=== PATIENT | male | born 1965 | race Caucasian/White ===

== ENCOUNTER 2017-01-09 14:47 | Inpatient (IN) ==
--- NOTE | 2017-01-09 15:05 | ED EKG INTERP ---
EKG Interpretation - EKG Time of EKG reading by physician:: 14:49 EKG Read and Signed by:: Elliott Jauregui EKG Interpretation (*Must complete 3 of following elements*): Abnormal Rate: 98 Rhythm: normal sinus rhythm Comments: left anterior fascicular block
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
[2017-01-09 16:29] LABS: ALLEN TEST NO; BE 15.9 mmoll (-3.0-3.0); BLOOD TYPE ARTERIAL; DRAW SITE L RADIAL; METHB 1.5 % (0.0-1.5); O2(CT) 22.9 mL/dL (15.0-23.0); PO2(98.6) 84 mmHg (60-100); SAMPLE BLOOD; SAO2 99.1 % (95.0-100.0); pH(98.6) 7.36 (7.35-7.45)
[2017-01-09 16:33] LABS: MODALITY CANNULA
[2017-01-09 16:35] LABS: PCO2(98.6) 83 mmHg (35-45)
[2017-01-09 17:50] LABS: MANUAL DIFF NEEDED? NO
[2017-01-09 17:58] LABS: BASO% 0.2 % (0.0-0.8); HEMATOCRIT 52.9 % (42.0-52.0); HEMOGLOBIN 16.6 g/dL (14.0-18.0); LYMPH# 0.62 X1000 (1.2-3.4); MCH 30.1 PG (27-31); MCHC 31.4 g/dL (33-37); MCV 95.8 FL (81-99); MONO# 0.91 X1000 (0.11-0.59); MONO% 17.6 % (1.7-9.3); MPV 10.8 FL (7.4-10.4); NEUT% 70.2 % (42.2-75.2); PLT 189 X1000 (130-400); RBC 5.52 XMIL (4.7-6.1)
[2017-01-09 18:01] LABS: PROTIME 10.5 Seconds (9.2-11.7); PTT 30.3 Seconds (22.0-36.0)
[2017-01-09 18:31] LABS: AGAP 8; BUN 22 mg/dL (8-22); CALCIUM 8.9 mg/dL (8.8-10.2); CHLORIDE 96 mmol/L (98-107); COSMO 293; POTASSIUM 4.5 mmol/L (3.5-5.1); SODIUM 144 mmol/L (136-145); TCO2 40 mmol/L (25-35)
[2017-01-09] MEDS ORDERED: DUONEB (A & A) INH ONE (19:54)
[2017-01-09] MEDS ORDERED: LEVAQUIN 750 MG/D5W 150 ML IV ONE (19:54)
[2017-01-09] MEDS ORDERED: SOLU-MEDROL IV ONE (19:54)
--- NOTE | 2017-01-09 20:07 | Diag Imaging Result Document ---
PROCEDURE NAME: ANGIOGRAM/PULMONARY ARTERIES - 01/09/2017 CT OF THE CHEST WITH INTRAVENOUS CONTRAST AND CLARITY: FINDINGS: There is no evidence of pulmonary emboli. There are a number of prominent mediastinal nodes, most notably in the aorticopulmonary window where there is a node measuring over 2.3 cm. This has not changed appreciably since 07/17/2016. The left ventricle is enlarged. The aorta is not distended, nor is there evidence of dissection. There are some tree-in-bud opacities in both upper lobes, more prominently on the left than the right. This may have improved slightly since the previous study. There are emphysematous changes, particularly in the left upper lobe. There are also fibrotic changes in the left base, which appear to be stable since the previous study. There are coarse opacities present in the right middle lobe, which were also present previously. IMPRESSION: No evidence of pulmonary emboli. Chronic fibrotic changes and pneumonitis, the latter slightly improved since 07/17/2016.
[2017-01-09] MEDS ORDERED: BUMEX IV ONE ×2 (20:55→21:03)
[2017-01-09] MEDS ORDERED: OXY IR PO ONE (20:55)
[2017-01-09] MEDS ORDERED: OXY IR PO PRN (21:55)
[2017-01-09] MEDS ORDERED: TYLENOL PO SCH (21:55)
[2017-01-09] MEDS ORDERED: FORADIL INH SCH (21:55)
[2017-01-09] MEDS ORDERED: HUMULIN R SUBQ SCH (21:55)
[2017-01-09] MEDS ORDERED: NAPROSYN PO SCH (21:55)
[2017-01-09] MEDS ORDERED: NICODERM PATCH TD SCH (21:55)
[2017-01-09] MEDS ORDERED: LOVENOX SUBQ SCH (22:00)
[2017-01-09] MEDS ORDERED: DUONEB (A & A) INH SCH (22:00)
[2017-01-09 22:11] VITALS: BP 121/75
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
[2017-01-09] MEDS ORDERED: DOXYCYCLINE PO SCH (22:15)
[2017-01-10] MEDS ORDERED: SOLU-MEDROL IV SCH (08:00)
[2017-01-10] MEDS ORDERED: NEXIUM PO SCH (09:00)
[2017-01-10] MEDS ORDERED: VALIUM PO SCH (09:00)
[2017-01-10] MEDS ORDERED: KLOR-CON PO SCH (09:00)
[2017-01-10] MEDS ORDERED: BUMEX PO SCH (09:00)
[2017-01-10] MEDS ORDERED: PRINIVIL PO SCH (09:00)
== END 2017-01-09 22:35 | disposition left against medical advice (07) ==
LOC: ED 14:47 → 4N 21:38